=== PATIENT | male | born 1995 | race African-American/Black ===

== ENCOUNTER 2017-10-27 19:14 | Emergency (ER) | payer OTHER, BC ==
[~2017-10-27] VITALS: Ht 188 cm; Wt 88.5 kg
[~2017-10-27 19:14] MED LIST: BENTYL 20 MG TA20 M1 PO; CALCIUM + VIT1 EACH PO; IBUPROFEN 400400 M1 PO; IBUPROFEN 600600 M1 PO; LORTAB 7.5/5001 TA3 PO; MULTIVITAMINS PO; NORCO 5-325 TA1 EACH PO; NORFLEX100 MG PO; ONDANSETRON HCL4 M2 PO; OXYCONTIN CR 1010 MG PO; PEPCID40 MG PO; SUDAFED30 MG PO; VITAMIN D400 UNI4 PO
[2017-10-27] MEDS ORDERED: CYCLOBENZAPRINE5 MG PO (20:43)
[2017-10-27] MEDS ORDERED: MOBIC7.5 MG PO (20:43)
[2017-10-27] MEDS ORDERED: CRUTCHES MISCELL (20:50)
[2017-10-27 21:00] VITALS: BP 136/89
== END 2017-10-27 21:02 | disposition home or self-care (01) ==
LOC: ER 19:14
DX: S16.1XXA Strain of muscle, fascia and tendon at neck level, initial encounter (principal); M25.562 Pain in left knee; Z98.890 Other specified postprocedural states; V59.49XA Driver of pick-up truck or van injured in collision with other motor vehicles in traffic accident, initial encounter; Y93.89 Activity, other specified; Y92.89 Other specified places as the place of occurrence of the external cause; Y99.8 Other external cause status

== ENCOUNTER 2020-10-09 06:17 | Emergency (ER) | payer BC ==
[~2020-10-09] VITALS: Ht 188 cm; Wt 101.6 kg
--- NOTE | ~2020-10-09 | EKG ---
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
[~2020-10-09 06:17] MED LIST changes: +CRUTCHES MISCELL; +CYCLOBENZAPRINE5 MG PO; +MOBIC7.5 MG PO
[2020-10-09] MEDS ORDERED: NAPROSYN500 MG PO ×2 (07:06→07:18)
[2020-10-09] MEDS ORDERED: NOHOMEMEDICATIONS (07:08)
[2020-10-09 07:33] VITALS: BP 146/80
--- NOTE | 2020-10-09 17:02 | EKG ---
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: [facility] : 1995 Requested By: Jaya Katz Order Number: [id number] MD: Riky Yeung Measurements Intervals [place] Rate: 72 P: 36 WA: 141 QRS: 45 QRSD: 93 T: 29 QT: 402 QTc: 440 Interpretive Statements Sinus rhythm Atrial premature complex Compared to ECG 07/30/2017 03:13:52 Atrial premature complex(es) now present Sinus arrhythmia no longer present Electronically Signed On 10-09-2020 17:02:35 EMPLOYMENT PROGRAMS ANALYST by Riky Yeung [email or web address] <ELECTRONICALLY SIGNED> By: Riky Yeung MD, FACC 10/09/20 1702 0624 Riky Yeung MD, [facility] /EPI
== END 2020-10-09 07:34 | disposition home or self-care (01) ==
LOC: ER 06:17
DX: R07.89 Other chest pain (principal); Z79.899 Other long term (current) drug therapy

== ENCOUNTER 2020-12-21 12:31 | Emergency (ER) | payer OTHER, BC ==
[~2020-12-21] VITALS: Ht 188 cm; Wt 99.8 kg
[~2020-12-21 12:31] MED LIST changes: +NAPROSYN500 MG PO; +NOHOMEMEDICATIONS
[2020-12-21] MEDS ORDERED: IBUPROFEN 800800 M1 PO (14:24)
[2020-12-21 14:40] VITALS: BP 130/78
== END 2020-12-21 14:40 | disposition home or self-care (01) ==
LOC: ER 12:31
DX: S46.211A Strain of muscle, fascia and tendon of other parts of biceps, right arm, initial encounter (principal); Z98.890 Other specified postprocedural states; X50.0XXA Overexertion from strenuous movement or load, initial encounter; Y93.89 Activity, other specified; Y92.89 Other specified places as the place of occurrence of the external cause; Y99.0 Civilian activity done for income or pay

== ENCOUNTER 2021-06-10 12:20 | Emergency (ER) | payer OTHER ==
[~2021-06-10 12:20] MED LIST changes: +IBUPROFEN 800800 M1 PO
[2021-06-10 12:23] VITALS: BP 119/69
== END 2021-06-10 15:10 | disposition home or self-care (01) ==
LOC: ER 12:20
DX: R53.83 Other fatigue (principal); M79.10 Myalgia, unspecified site; Z20.822 Contact with and (suspected) exposure to COVID-19